=== PATIENT | male | born 1945 | race Two or more races ===

== ENCOUNTER 2023-05-02 17:58 | Emergency (ER) | payer OTHER ==
[2023-05-02 18:05] VITALS: PULSE 66; RESP 17; TEMP 97.1
[2023-05-02] MEDS ORDERED: METOCLOPRAMIDE HCL INJECTION 10 MG/2 ML VIAL IVPB ONE (19:42)
[2023-05-02] MEDS ORDERED: ACETAMINOPHEN 1000 MG/100 ML BAG IVPB ONE (19:42)
[2023-05-02] MEDS ORDERED: METOCLOPRAMIDE HCL INJECTION 10 MG/2 ML VIAL ONE (19:47)
[2023-05-02] MEDS ORDERED: ACETAMINOPHEN INJECTION 100 ML IVPB ONE (19:47)
[2023-05-02 20:36] LABS: BASO % 1.1 % (0-2.0); EOS % 7.6 % (0-4.5); HEMATOCRIT 40.4 % (35.4-49); HEMOGLOBIN 13.4 GM/dL (11.7-16.9); MCH 30.9 pg (25.7-33.7); MCHC 33.2 g/dl (32.0-35.9); MEAN PLT VOLUME 7.4 fl (7.5-11.1); MONO % 8.1 % (3.8-10.2); NEUT % 62.2 % (42.8-82.8); PLATELET COUNT 307 10^3/uL (134-434); RBC 4.35 M/mm3 (4.00-5.60); RDW 17.2 % (11.9-15.9); WHITE BLOOD COUNT 8.3 K/mm3 (4.0-10.0)
[2023-05-02 20:49] LABS: POTASSIUM 5.4 mmol/L (3.5-5.1)
[2023-05-02 20:52] LABS: CALCIUM 9.3 mg/dL (8.5-10.1)
[2023-05-02 20:53] LABS: ALBUMIN 3.6 g/dl (3.4-5.0); BLOOD UREA NITROGEN 15.2 mg/dL (7-18)
[2023-05-02 20:54] LABS: EPI CELLS 7 /uL (0-25.1); HYALINE CASTS 0 /uL (0-3.1); URINE APPEARANCE CLEAR; URINE BACTERIA 12 /uL (0-1359); URINE BILIRUBIN NEGATIVE (NEGATIVE); URINE COLOR YELLOW; URINE GLUCOSE (UA) 2+ (NEGATIVE); URINE KETONE NEGATIVE (NEGATIVE); URINE LEUK ESTERASE NEGATIVE (NEGATIVE); URINE NITRITE NEGATIVE (NEGATIVE); URINE PROTEIN 1+ (NEGATIVE); URINE RBC 15 /uL (0-23.9); URINE UROBILINOGEN 0.2 mg/dL (0.2-1.0); URINE WBC 8 /uL (0-25.8)
[2023-05-02 20:56] LABS: CREATININE 1.2 mg/dL (0.55-1.3)
[2023-05-02 20:57] LABS: TOT PROT 7.8 g/dl (6.4-8.2)
[2023-05-02 20:58] LABS: BILIRUBIN,TOTAL 0.7 mg/dL (0.2-1)
[2023-05-02] MEDS ORDERED: SODIUM CHLORIDE 0.9% 500 ML INFUS.BAG IV ONE (21:09)
[2023-05-02] MEDS ORDERED: LOSARTAN POTASSIUM 25 MG TABLET PO ONE (21:09)
[2023-05-02] MEDS ORDERED: LOSARTAN POTASSIUM 25 MG TABLET ONE (21:13)
[2023-05-02 22:36] VITALS: BP 163/73
== END 2023-05-02 22:57 | disposition home or self-care (01) ==
LOC: JER 17:58
PROC: 3E033NZ Introduction of Analgesics, Hypnotics, Sedatives into Peripheral Vein, Percutaneous Approach (ICD-10-PCS; principal; 2023-05-02)
PROC: 3E033GC Introduction of Other Therapeutic Substance into Peripheral Vein, Percutaneous Approach (ICD-10-PCS; 2023-05-02)
DX: I10 Essential (primary) hypertension (principal); R51.9 Headache, unspecified; Z20.822 Contact with and (suspected) exposure to COVID-19
CPT/HCPCS: 0241U-QW; 36415; 70450-TC; 71046-TC-FY; 80053; 81003; 84484; 85025; 93005; 93010; 99285-25

== ENCOUNTER 2023-06-04 21:08 | Inpatient (IN) | payer OTHER ==
[2023-06-04 21:22] VITALS: BMI 26.4
[2023-06-05 00:15] LABS: BASO % 1.1 % (0-2.0); EOS % 11.6 % (0-4.5); HEMATOCRIT 34.5 % (35.4-49); HEMOGLOBIN 11.2 GM/dL (11.7-16.9); LYMPH % 19.6 % (8-40); MCH 29.9 pg (25.7-33.7); MCHC 32.4 g/dl (32.0-35.9); MEAN CELL VOLUME 92.3 fl (80-96); MEAN PLT VOLUME 7.2 fl (7.5-11.1); MONO % 9.3 % (3.8-10.2); NEUT % 58.4 % (42.8-82.8); PLATELET COUNT 398 10^3/uL (134-434); RBC 3.74 M/mm3 (4.00-5.60); RDW 16.3 % (11.9-15.9); WHITE BLOOD COUNT 6.8 K/mm3 (4.0-10.0)
[2023-06-05 00:24] LABS: INR 0.99 (0.83-1.09); PROTHROMBIN TIME (PATIENT) 11.5 SEC (9.7-13.0)
[2023-06-05 00:27] LABS: ACTIVATED PTT 32.5 SECONDS (25.2-36.5)
[2023-06-05 00:35] LABS: POTASSIUM 4.4 mmol/L (3.5-5.1)
[2023-06-05 00:37] LABS: CALCIUM 8.9 mg/dL (8.5-10.1)
[2023-06-05 00:38] LABS: ALBUMIN 3.2 g/dl (3.4-5.0); BLOOD UREA NITROGEN 9.8 mg/dL (7-18)
[2023-06-05 00:41] LABS: CREATININE 1.2 mg/dL (0.55-1.3)
[2023-06-05 00:42] LABS: BILIRUBIN,TOTAL 0.3 mg/dL (0.2-1); TOT PROT 7.3 g/dl (6.4-8.2)
[2023-06-05 00:45] LABS: N-TERMINAL BNP 300.2 pg/ml (5-450)
[2023-06-05] MEDS ORDERED: CEFTRIAXONE 1,000 MG in DEXTROSE 5%-WATER - 50 ML IVPB ONE (01:52)
[2023-06-05] MEDS ORDERED: AZITHROMYCIN IVPB 500 MG in DEXTROSE 5%-WATER - 250 ML IVPB ONE (01:52)
[2023-06-05] MEDS ORDERED: AZITHROMYCIN IVPB 500 MG/250 ML BAG IVPB ONE (02:33)
[2023-06-05] MEDS ORDERED: CEFTRIAXONE 1 GM/50 ML BAG ONE (02:33)
[2023-06-05] MEDS: INSULIN SLIDING SCALE (NOVOLOG) 1 VIAL SQ SCH ×3 (08:22→17:41)
[2023-06-05 08:52] LABS: HEMATOCRIT 34.1 % (35.4-49); HEMOGLOBIN 11.1 GM/dL (11.7-16.9); MCH 29.8 pg (25.7-33.7); MCHC 32.5 g/dl (32.0-35.9); MEAN CELL VOLUME 91.6 fl (80-96); MEAN PLT VOLUME 7.2 fl (7.5-11.1); PLATELET COUNT 376 10^3/uL (134-434); RBC 3.72 M/mm3 (4.00-5.60); RDW 16.5 % (11.9-15.9); WHITE BLOOD COUNT 7.2 K/mm3 (4.0-10.0)
[2023-06-05 09:24] LABS: BLOOD UREA NITROGEN 8.3 mg/dL (7-18); CALCIUM 8.7 mg/dL (8.5-10.1)
[2023-06-05 09:29] LABS: BILIRUBIN,TOTAL 0.3 mg/dL (0.2-1); TOT PROT 6.8 g/dl (6.4-8.2)
[2023-06-05] MEDS ORDERED: PIPERACILLIN/TAZOB 4.5 GM 4.5 GM/100 ML BAG IVPB ONE ×2 (09:37→15:32)
[2023-06-05] MEDS: ENOXAPARIN NA (PORCINE) 40 MG/0.4 ML DISP.SYRIN SQ SCH (09:45)
[2023-06-05] MEDS: PIPERACILLIN/TAZOB 4.5 GM 4.5 GM in DEXTROSE 5%-WATER 100 ML IVPB SCH ×2 (09:45→15:42)
[2023-06-05] MEDS: CLOPIDOGREL BISULFATE 75 MG TABLET (FP) PO SCH (09:45)
[2023-06-05] MEDS ORDERED: ALBUTEROL SO4 0.042% IH SOL 1.25 MG/3 ML VIAL.NEB NEB PRN (10:45)
[2023-06-05] MEDS ORDERED: IRON SUCROSE INJECTION 100 MG in SODIUM CHLORIDE 95 ML IVPB ONE (11:00)
[2023-06-05 12:11] LABS: ARTERIAL BLD GAS O2 SATURATION 86.4 % (95-98); ARTERIAL BLOOD GAS BASE EXCESS 0.6 mmol/L (-2-2); ARTERIAL BLOOD GAS PO2 52.5 mmHg (80-100); ARTERIAL BLOOD GAS pH 7.381 (7.350-7.450)
[2023-06-05 12:12] LABS: ALLENS TEST POSITIVE
[2023-06-05] MEDS ORDERED: ACETAMINOPHEN 1000 MG/100 ML BAG IVPB PRN (15:26)
[2023-06-05] MEDS ORDERED: morphine SULFATE 4 MG/ML VIAL IVPUSH ONE (15:27)
[2023-06-05 18:06] LABS: BF WBC & OTHER NUCLEATED CELLS 927 /mm3; BODY FLUID MACROPHAGES 1 %; BODY FLUID MESOTHELIAL 2 %; BODY FLUID MONOCYTE 33 %; BODYL FLD EOSINOPHIL 1 %
[2023-06-06] MEDS: INSULIN SLIDING SCALE (NOVOLOG) 1 VIAL SQ SCH ×5 (00:23→21:34)
[2023-06-06] MEDS ORDERED: AZITHROMYCIN IVPB 500 MG in DEXTROSE 5%-WATER - 250 ML IVPB SCH (06:00)
[2023-06-06] MEDS ORDERED: PIPERACILLIN/TAZOB 4.5 GM 4.5 GM in DEXTROSE 5%-WATER 100 ML IVPB SCH (09:00)
[2023-06-06] MEDS ORDERED: LISINOPRIL 10 MG TABLET ONE (09:09)
[2023-06-06] MEDS ORDERED: CLOPIDOGREL BISULFATE 75 MG TABLET (FP) ONE (09:09)
[2023-06-06] MEDS ORDERED: ENOXAPARIN NA (PORCINE) 40 MG/0.4 ML DISP.SYRIN SQ ONE (09:09)
[2023-06-06] MEDS: ENOXAPARIN NA (PORCINE) 40 MG/0.4 ML DISP.SYRIN SQ SCH (09:30)
[2023-06-06] MEDS: LISINOPRIL 10 MG TABLET PO SCH (09:31)
[2023-06-06] MEDS: CLOPIDOGREL BISULFATE 75 MG TABLET (FP) PO SCH (09:31)
[2023-06-06] MEDS ORDERED: ACETAMINOPHEN INJECTION 100 ML IVPB ONE (12:01)
[2023-06-06] MEDS ORDERED: ACETAMINOPHEN 325 MG TABLET (FP) PO PRN (17:48)
[2023-06-07] MEDS: INSULIN SLIDING SCALE (NOVOLOG) 1 VIAL SQ SCH ×4 (06:52→21:46)
[2023-06-07] MEDS: ENOXAPARIN NA (PORCINE) 40 MG/0.4 ML DISP.SYRIN SQ SCH (09:55)
[2023-06-07] MEDS: LISINOPRIL 10 MG TABLET PO SCH (09:55)
[2023-06-07] MEDS: CLOPIDOGREL BISULFATE 75 MG TABLET (FP) PO SCH (09:55)
[2023-06-07 10:16] LABS: BASO % 0.9 % (0-2.0); EOS % 14.6 % (0-4.5); HEMATOCRIT 34.2 % (35.4-49); LYMPH % 23.2 % (8-40); MCH 29.7 pg (25.7-33.7); MCHC 32.3 g/dl (32.0-35.9); MEAN PLT VOLUME 7.2 fl (7.5-11.1); MONO % 9.6 % (3.8-10.2); NEUT % 51.7 % (42.8-82.8); PLATELET COUNT 414 10^3/uL (134-434); RBC 3.72 M/mm3 (4.00-5.60); RDW 16.8 % (11.9-15.9); WHITE BLOOD COUNT 5.9 K/mm3 (4.0-10.0)
[2023-06-07 10:34] LABS: ALBUMIN 2.9 g/dl (3.4-5.0); BLOOD UREA NITROGEN 7.1 mg/dL (7-18)
[2023-06-07 10:37] LABS: TOT PROT 6.7 g/dl (6.4-8.2)
[2023-06-07 10:38] LABS: BILIRUBIN,TOTAL 0.4 mg/dL (0.2-1)
[2023-06-08] MEDS: INSULIN SLIDING SCALE (NOVOLOG) 1 VIAL SQ SCH ×4 (06:54→21:28)
[2023-06-08] MEDS: CLOPIDOGREL BISULFATE 75 MG TABLET (FP) PO SCH (10:21)
[2023-06-08] MEDS: LISINOPRIL 10 MG TABLET PO SCH (10:21)
[2023-06-08] MEDS: ENOXAPARIN NA (PORCINE) 40 MG/0.4 ML DISP.SYRIN SQ SCH (10:24)
[2023-06-08] MEDS: PANTOPRAZOLE SODIUM 40 MG VIAL IVPUSH SCH (20:00)
[2023-06-08] MEDS: CARVEDILOL 3.125 MG TABLET (FP) PO SCH (21:21)
[2023-06-08] MEDS ORDERED: ROSUVASTATIN CA 20 MG TABLET PO SCH (22:00)
[2023-06-09] MEDS: INSULIN SLIDING SCALE (NOVOLOG) 1 VIAL SQ SCH ×3 (06:42→17:38)
[2023-06-09 08:12] VITALS: RESP 18
[2023-06-09] MEDS: CARVEDILOL 3.125 MG TABLET (FP) PO SCH (09:26)
[2023-06-09] MEDS: PANTOPRAZOLE SODIUM 40 MG VIAL IVPUSH SCH (09:27)
[2023-06-09] MEDS ORDERED: LOSARTAN POTASSIUM 50 MG TABLET PO SCH (10:00)
[2023-06-09] MEDS ORDERED: amLODIPine BESYLATE 5 MG TABLET (FP) PO SCH (10:00)
[2023-06-09] MEDS ORDERED: FINASTERIDE 5 MG TABLET (FP) PO SCH (10:00)
[2023-06-09 10:27] LABS: BASO % 1.8 % (0-2.0); EOS % 16.5 % (0-4.5); HEMATOCRIT 32.6 % (35.4-49); HEMOGLOBIN 10.7 GM/dL (11.7-16.9); LYMPH % 25.2 % (8-40); MCH 30.3 pg (25.7-33.7); MCHC 32.8 g/dl (32.0-35.9); MEAN CELL VOLUME 92.2 fl (80-96); MONO % 8.5 % (3.8-10.2); PLATELET COUNT 390 10^3/uL (134-434); RBC 3.54 M/mm3 (4.00-5.60); RDW 16.8 % (11.9-15.9); WHITE BLOOD COUNT 5.4 K/mm3 (4.0-10.0)
[2023-06-09 10:49] LABS: POTASSIUM 4.1 mmol/L (3.5-5.1)
[2023-06-09 11:08] LABS: CALCIUM 8.6 mg/dL (8.5-10.1)
[2023-06-09 11:09] LABS: ALBUMIN 2.8 g/dl (3.4-5.0); BLOOD UREA NITROGEN 5.3 mg/dL (7-18)
[2023-06-09 11:12] LABS: CREATININE 0.9 mg/dL (0.55-1.3); PHOSPHOROUS 2.5 mg/dL (2.5-4.9)
[2023-06-09 11:13] LABS: BILIRUBIN,TOTAL 0.4 mg/dL (0.2-1)
[2023-06-09 11:14] LABS: TOT PROT 6.4 g/dl (6.4-8.2)
[2023-06-09 14:54] VITALS: BP 100/49; PULSE 79; TEMP 98
== END 2023-06-09 17:20 | disposition home or self-care (01) | DRG 186 ==
LOC: JER 21:08 → JERBED 06-05 02:51 → J6S 06-06 17:16
PROVIDERS: ADMIT Internal Medicine; ATTEND Internal Medicine
PROC: 0W9930Z Drainage of Right Pleural Cavity with Drainage Device, Percutaneous Approach (ICD-10-PCS; principal; 2023-06-05)
DX: J90 Pleural effusion, not elsewhere classified (principal); J96.01 Acute respiratory failure with hypoxia; C34.90 Malignant neoplasm of unspecified part of unspecified bronchus or lung; K92.1 Melena; T85.628A Displacement of other specified internal prosthetic devices, implants and grafts, initial encounter; J98.11 Atelectasis; E11.9 Type 2 diabetes mellitus without complications; I25.10 Atherosclerotic heart disease of native coronary artery without angina pectoris; I10 Essential (primary) hypertension; D64.9 Anemia, unspecified; Z95.5 Presence of coronary angioplasty implant and graft; Y83.9 Surgical procedure, unspecified as the cause of abnormal reaction of the patient, or of later complication, without mention of misadventure at the time of the procedure
CPT/HCPCS: 0241U-QW; 36415; 36600; 71045-TC-FY; 71046-TC-FY; 71275-TC; 74177-TC; 80053; 82272; 82728; 82803; 82962; 83010; 83540; 83550; 83615; 83735; 83880; 84100; 84466; 84484; 85025; 85027; 85045; 85379; 85610; 85730; 88108; 88305-TC; 93005; 93010; 99285-25; J1756; Q9967

== ENCOUNTER 2023-06-12 09:20 | Emergency (ER) | payer OTHER ==
[2023-06-12 09:47] VITALS: BMI 24.2
[2023-06-12 11:35] LABS: BASO % 0.3 % (0-2.0); EOS % 13.4 % (0-4.5); HEMATOCRIT 33.1 % (35.4-49); HEMOGLOBIN 10.9 GM/dL (11.7-16.9); LYMPH % 18.9 % (8-40); MCH 30.5 pg (25.7-33.7); MCHC 33.1 g/dl (32.0-35.9); MEAN CELL VOLUME 92.4 fl (80-96); MEAN PLT VOLUME 6.8 fl (7.5-11.1); MONO % 9.3 % (3.8-10.2); NEUT % 58.1 % (42.8-82.8); PLATELET COUNT 418 10^3/uL (134-434); RBC 3.58 M/mm3 (4.00-5.60); RDW 17.3 % (11.9-15.9); WHITE BLOOD COUNT 7.6 K/mm3 (4.0-10.0)
[2023-06-12 11:55] LABS: POTASSIUM 4.2 mmol/L (3.5-5.1)
[2023-06-12 11:59] LABS: CALCIUM 9.7 mg/dL (8.5-10.1)
[2023-06-12 12:00] LABS: ALBUMIN 3.2 g/dl (3.4-5.0); BLOOD UREA NITROGEN 9.3 mg/dL (7-18)
[2023-06-12 12:03] LABS: CREATININE 1.2 mg/dL (0.55-1.3)
[2023-06-12 12:04] LABS: BILIRUBIN,TOTAL 0.4 mg/dL (0.2-1); TOT PROT 7.3 g/dl (6.4-8.2)
[2023-06-12 13:48] VITALS: BP 153/77; PULSE 77; RESP 18
[2023-06-12] MEDS ORDERED: ACETAMINOPHEN 1000 MG/100 ML BAG IVPB ONE (14:25)
[2023-06-12] MEDS ORDERED: ACETAMINOPHEN INJECTION 100 ML IVPB ONE (14:27)
[2023-06-12 14:45] VITALS: TEMP 97.8
== END 2023-06-12 14:47 | disposition home or self-care (01) ==
LOC: JER 09:20
PROC: 3E033NZ Introduction of Analgesics, Hypnotics, Sedatives into Peripheral Vein, Percutaneous Approach (ICD-10-PCS; principal; 2023-06-12)
DX: R07.89 Other chest pain (principal); R05.9 Cough, unspecified; R22.2 Localized swelling, mass and lump, trunk; J91.0 Malignant pleural effusion; Z20.822 Contact with and (suspected) exposure to COVID-19
CPT/HCPCS: 0241U-QW; 36415; 71046-TC-FY; 71275-TC; 80053; 84484; 85025; 93005; 93010; 96374; 99285-25; Q9967

== ENCOUNTER 2024-10-06 10:40 | Inpatient (IN) | payer OTHER ==
[2024-10-06 11:41] LABS: ABSOLUTE IMMATURE GRANULOCYTES 0.22 x10^3/uL (0.0-0.031); BASOPHILS # 0.06 x10^3/uL (0.01-0.08); EOSINOPHIL % 0.3 % (0.8-7.0); EOSINOPHILS # 0.06 x10^3/uL (0.04-0.54); HEMATOCRIT 35.1 % (40.1-51.0); HEMOGLOBIN 11.4 g/dL (13.7-17.5); MCHC 32.5 g/dl (32.3-36.5); MEAN CELL VOLUME 83.2 fl (79.0-92.2); MEAN PLT VOLUME 10.4 fl (9.4-12.4); MONOCYTE # 0.85 x10^3/uL (0.30-0.82); MONOCYTE % 4.7 % (5.3-12.2); PLATELET COUNT 271 x10^3/uL (163-337); RDW 18.7 % (12.2-16.6)
[2024-10-06 11:45] LABS: VENOUS BASE EXCESS -8.4 mmol/L (-2-2); VENOUS O2 SATURATION 56.1 % (70-80); VENOUS PCO2 35.1 mmHg (38-52); VENOUS PH 7.304 (7.310-7.410)
[2024-10-06 12:00] LABS: INR 1.12 (0.83-1.09); PROTHROMBIN TIME (PATIENT) 12.3 SEC (9.7-13.0)
[2024-10-06 12:02] LABS: ACTIVATED PTT 27.7 SECONDS (25.2-36.5)
[2024-10-06 12:05] LABS: CHLORIDE 109 mmol/L (98-107); SODIUM 134 mmol/L (136-145)
[2024-10-06 12:06] LABS: ALBUMIN 1.9 g/dl (3.4-5.0); BLOOD UREA NITROGEN 21.5 mg/dL (7-18); CALCIUM 8.5 mg/dL (8.5-10.1); CO2 17 mmol/L (21-32)
[2024-10-06 12:07] LABS: GLUCOSE,RANDOM 125 mg/dL (74-106)
[2024-10-06 12:10] LABS: CREATININE 1.4 mg/dL (0.55-1.3)
[2024-10-06 12:11] LABS: BILIRUBIN,TOTAL 0.8 mg/dL (0.2-1); TOT PROT 6.6 g/dl (6.4-8.2)
[2024-10-06 12:12] LABS: ALK PHOS 133 U/L (45-117)
[2024-10-06] MEDS: LACTATED RINGERS SOLUTION 1000 ML INFUS.BAG IV ONE (12:19)
[2024-10-06 12:20] LABS: ANION GAP 8 mmol/L (4-13); POTASSIUM 7.9 mmol/L (3.5-5.1); SGOT/AST 113 U/L (15-37); SGPT/ALT 38 U/L (13-61)
[2024-10-06] MEDS ORDERED: PIPERACILLIN/TAZOB 4.5 GM 4.5 GM/100 ML BAG IVPB ONE (12:31)
[2024-10-06] MEDS: PIPERACILLIN/TAZOB 4.5 GM 4.5 GM in DEXTROSE 5%-WATER 100 ML IVPB ONE (12:49)
[2024-10-06] MEDS ORDERED: VANCOMYCIN 1 GM PREMIX (F) 1 GM/200 ML BAG ONE (13:03)
[2024-10-06] MEDS: VANCOMYCIN 1,000 MG in DEXTROSE 5%-WATER - 250 ML IVPB ONE (13:08)
[2024-10-06 13:14] LABS: EPI CELLS 34 /uL (0-25.1); HYALINE CASTS 9 /uL (0-3.1); URINE APPEARANCE CLOUDY; URINE BACTERIA 26 /uL (0-1359); URINE BILIRUBIN NEGATIVE (NEGATIVE); URINE COLOR DK YELLOW; URINE GLUCOSE (UA) 3+ (NEGATIVE); URINE KETONE TRACE (NEGATIVE); URINE LEUK ESTERASE NEGATIVE (NEGATIVE); URINE NITRITE NEGATIVE (NEGATIVE); URINE PROTEIN 2+ (NEGATIVE)
[2024-10-06] MEDS ORDERED: INSULIN REGULAR HUMAN 100 UNITS/ML *VIAL IVPUSH ONE (14:30)
[2024-10-06] MEDS ORDERED: DEXTROSE 50%-WATER - 25 GM/50 ML VIAL IVPUSH PRN (14:30)
[2024-10-06 14:49] LABS: CALCIUM 8.5 mg/dL (8.5-10.1); POTASSIUM 3.6 mmol/L (3.5-5.1)
[2024-10-06 14:51] LABS: BLOOD UREA NITROGEN 19.4 mg/dL (7-18)
[2024-10-06 14:53] LABS: CREATININE 1.2 mg/dL (0.55-1.3)
[2024-10-06 15:08] LABS: URINE RBC 23.8 /uL (0-23.9); URINE WBC 58.2 /uL (0-25.8)
[2024-10-06] MEDS: INSULIN REGULAR HUMAN 100 UNITS/ML *VIAL IVPUSH ONE (15:32)
[2024-10-06] MEDS: CALCIUM GLUC IN NACL, ISO-OSM 1 GM/50 ML BAG IVPB ONE (15:32)
[2024-10-06] MEDS ORDERED: ACETAMINOPHEN INJECTION 100 ML ONE (15:45)
[2024-10-06] MEDS: ACETAMINOPHEN 1000 MG/100 ML BAG IVPB ONE (15:52)
[2024-10-06] MEDS: SODIUM CHLORIDE 0.9% 500 ML INFUS.BAG IV ONE (16:56)
[2024-10-06] MEDS ORDERED: PIPERACILLIN/TAZOB 3.375 GM 3.375 GM/50 ML BAG IVPB ONE (18:31)
[2024-10-06] MEDS: SODIUM CHLORIDE 1,000 ML IV SCH (18:42)
[2024-10-06] MEDS: PIPERACILLIN/TAZOB 3.375 GM 3.375 GM in DEXTROSE 5%-WATER - 50 ML IVPB SCH (18:42)
[2024-10-06] MEDS ORDERED: PIPERACILLIN/TAZOB 3.375 GM 3.375 GM in DEXTROSE 5%-WATER - 50 ML IVPB SCH (19:00)
[2024-10-06] MEDS ORDERED: ALBUMIN HUMAN 5% 500 ML IV SOLUTION IV ONE (19:30)
[2024-10-06] MEDS ORDERED: SEVOFLURANE 250 ML BTL ONE (19:35)
[2024-10-06] MEDS ORDERED: PROPOFOL 20 ML ONE (19:36)
[2024-10-06] MEDS ORDERED: DEXAMETHASONE SOD PHOSPHATE 4 MG/1 ML VIAL ONE ×2 (19:36→22:10)
[2024-10-06] MEDS ORDERED: ONDANSETRON 4 MG/2 ML VIAL ONE (19:36)
[2024-10-06] MEDS ORDERED: MIDAZOLAM HCL 2 MG/2 ML SINGLE DOSE VIAL ONE (19:36)
[2024-10-06] MEDS ORDERED: ROCURONIUM BROMIDE 50 MG/5 ML SYRINGE ONE ×2 (19:37→22:10)
[2024-10-06] MEDS ORDERED: HEPARIN NA (PORCINE) 5,000 UNITS/ML 1ML VIAL ONE (19:44)
[2024-10-06] MEDS ORDERED: INDOCYANINE GREEN 25 MG/10 ML VIAL IVPUSH ONE (19:44)
[2024-10-06] MEDS ORDERED: cefOXitin SODIUM 2 GM VIAL (RESTRICTED TO ID) IVPB ONE (19:44)
[2024-10-06] MEDS ORDERED: BUPIVACAINE HCL/PF 0.5% (5MG/ML) 10 ML VIAL ONE (19:44)
[2024-10-06] MEDS: BUPIVACAINE HCL/PF 0.25% (2.5MG/ML) 10 ML VIAL IJ ONE (20:58)
[2024-10-06] MEDS: ALBUMIN HUMAN 5% 250 ML IV SOLUTION IV ONE ×2 (20:59)
[2024-10-06] MEDS ORDERED: DONEPEZIL HCL 5 MG TABLET (FP) PO SCH (22:00)
[2024-10-06] MEDS ORDERED: INSULIN ASPART SLIDING SCALE (NOVOLOG) 1 VIAL SQ SCH (22:00)
[2024-10-06] MEDS ORDERED: INSULIN GLARGINE (LANTUS) 100 UNITS/ML UNITS SQ SCH (22:00)
[2024-10-06] MEDS ORDERED: SACUBITRIL/VALSARTAN 97 MG-103 MG TABLET PO SCH (22:00)
[2024-10-06] MEDS ORDERED: CARVEDILOL 3.125 MG TABLET (FP) PO SCH (22:00)
[2024-10-06] MEDS: cefOXitin SODIUM 1 GM VIAL (RESTRICTED TO ID) IVPB ONE (22:13)
[2024-10-06] MEDS ORDERED: SUGAMMADEX SODIUM 200 MG/2 ML VIAL ONE (23:28)
[2024-10-07] MEDS ORDERED: PROMETHAZINE HCL 25 MG/1 ML VIAL IVPB PRN (00:52)
[2024-10-07] MEDS ORDERED: ONDANSETRON 4 MG/2 ML VIAL IVPUSH PRN ×2 (00:52→00:53)
[2024-10-07] MEDS ORDERED: HYDROmorphone *PCA* 10MG/50ML DISP.SYRIN ONE (01:13)
[2024-10-07] MEDS: HYDROmorphone *PCA* 10MG/50ML DISP.SYRIN PCA SCH (01:25)
[2024-10-07] MEDS: LACTATED RINGERS SOLUTION 1,000 ML IV SCH (01:26)
[2024-10-07 03:35] LABS: CHLORIDE 114 mmol/L (98-107); SODIUM 138 mmol/L (136-145)
[2024-10-07 03:37] LABS: ALBUMIN 1.8 g/dl (3.4-5.0); CALCIUM 7.4 mg/dL (8.5-10.1); CO2 15 mmol/L (21-32); MAGNESIUM 1.6 mg/dL (1.8-2.4)
[2024-10-07] MEDS: HYDROmorphone HCL CARPU-JECT 2 MG/1 ML DISP.SYRIN IVPUSH PRN (03:37)
[2024-10-07 03:38] LABS: GLUCOSE,RANDOM 147 mg/dL (74-106)
[2024-10-07 03:40] LABS: CREATININE 1.4 mg/dL (0.55-1.3); SGOT/AST 55 U/L (15-37); SGPT/ALT 22 U/L (13-61)
[2024-10-07 03:41] LABS: PHOSPHOROUS 4.4 mg/dL (2.5-4.9)
[2024-10-07 03:42] LABS: BILIRUBIN,TOTAL 0.9 mg/dL (0.2-1); TOT PROT 4.8 g/dl (6.4-8.2)
[2024-10-07] MEDS: ACETAMINOPHEN 1000 MG/100 ML BAG IVPB SCH (03:54)
[2024-10-07] MEDS: CEFAZOLIN SODIUM 2 GM in DEXTROSE 5%-WATER 100 ML IVPB SCH (03:55)
[2024-10-07] MEDS: INSULIN ASPART SLIDING SCALE (NOVOLOG) 1 VIAL SQ SCH (03:55)
[2024-10-07 04:29] LABS: ALK PHOS 78 U/L (45-117); ANION GAP 9 mmol/L (4-13); POTASSIUM 6.4 mmol/L (3.5-5.1)
[2024-10-07 06:53] LABS: HEMATOCRIT 31.7 % (40.1-51.0); MCHC 31.5 g/dl (32.3-36.5); MEAN CELL VOLUME 85.9 fl (79.0-92.2); MEAN PLT VOLUME 10.4 fl (9.4-12.4); PLATELET COUNT 316 x10^3/uL (163-337); RDW 18.7 % (12.2-16.6)
[2024-10-07 07:24] LABS: POTASSIUM 4.8 mmol/L (3.5-5.1)
[2024-10-07 07:26] LABS: BLOOD UREA NITROGEN 19.8 mg/dL (7-18); CALCIUM 7.4 mg/dL (8.5-10.1)
[2024-10-07 07:30] LABS: CREATININE 1.6 mg/dL (0.55-1.3)
[2024-10-07 07:31] LABS: BILIRUBIN,TOTAL 0.4 mg/dL (0.2-1)
[2024-10-07] MEDS: SODIUM CHLORIDE 500 ML IV STA ×2 (08:21→12:25)
[2024-10-07] MEDS: PANTOPRAZOLE SODIUM 40 MG VIAL IVPUSH SCH (09:21)
[2024-10-07] MEDS: MUPIROCIN 2% TOPICAL OINTMENT FOR DECOLONIZATION NS SCH (09:21)
[2024-10-07] MEDS ORDERED: amLODIPine BESYLATE 5 MG TABLET (FP) PO SCH (10:00)
[2024-10-07] MEDS ORDERED: ROSUVASTATIN CA 20 MG TABLET PO SCH (10:00)
[2024-10-07] MEDS ORDERED: ENOXAPARIN NA (PORCINE) 40 MG/0.4 ML DISP.SYRIN SQ SCH (10:00)
[2024-10-07] MEDS ORDERED: FINASTERIDE 5 MG TABLET (FP) PO SCH (10:00)
[2024-10-07] MEDS ORDERED: CLOPIDOGREL BISULFATE 75 MG TABLET (FP) PO SCH (10:00)
[2024-10-07] MEDS ORDERED: SERTRALINE HCL 50 MG TABLET (FP) PO SCH (10:00)
[2024-10-07] MEDS: SODIUM CHLORIDE 1,000 ML IV STA ×3 (10:15→16:00)
[2024-10-07 16:41] LABS: HEMATOCRIT 24.6 % (40.1-51.0); HEMOGLOBIN 7.9 g/dL (13.7-17.5); MCHC 32.1 g/dl (32.3-36.5); MEAN CELL VOLUME 84.8 fl (79.0-92.2); MEAN PLT VOLUME 9.7 fl (9.4-12.4); PLATELET COUNT 297 x10^3/uL (163-337); RDW 19.1 % (12.2-16.6)
[2024-10-07 17:02] LABS: CHLORIDE 116 mmol/L (98-107); POTASSIUM 4.1 mmol/L (3.5-5.1); SODIUM 143 mmol/L (136-145)
[2024-10-07 17:08] LABS: ANION GAP 12 mmol/L (4-13); CO2 15 mmol/L (21-32); GLUCOSE,RANDOM 153 mg/dL (74-106)
[2024-10-07 17:11] LABS: CREATININE 1.3 mg/dL (0.55-1.3); SGOT/AST 12 U/L (15-37); SGPT/ALT 18 U/L (13-61)
[2024-10-07 17:12] LABS: BILIRUBIN,TOTAL 0.4 mg/dL (0.2-1); TOT PROT 4.3 g/dl (6.4-8.2)
[2024-10-07 17:13] LABS: ALK PHOS 63 U/L (45-117)
[2024-10-07 17:16] LABS: ALBUMIN 1.6 g/dl (3.4-5.0); CALCIUM 6.9 mg/dL (8.5-10.1)
[2024-10-07] MEDS: CALCIUM GLUCONATE 10% - 1,000 MG/10 ML VIAL IVPB ONE (18:43)
[2024-10-07] MEDS: PIPERACILLIN/TAZOB 3.375 GM 3.375 GM in DEXTROSE 5%-WATER - 50 ML IVPB SCH (18:57)
[2024-10-07] MEDS: CHLORHEXIDINE GLUCONATE 4% CLEANSER FOR DECOLONIZATION TP SCH (21:55)
[2024-10-08 00:41] LABS: HEMATOCRIT 29.2 % (40.1-51.0); HEMOGLOBIN 9.6 g/dL (13.7-17.5); MCHC 32.9 g/dl (32.3-36.5); MEAN CELL VOLUME 83.9 fl (79.0-92.2); MEAN PLT VOLUME 9.4 fl (9.4-12.4); PLATELET COUNT 291 x10^3/uL (163-337); RDW 18.1 % (12.2-16.6)
[2024-10-08 06:55] LABS: HEMATOCRIT 33.2 % (40.1-51.0); HEMOGLOBIN 11.1 g/dL (13.7-17.5); MCHC 33.4 g/dl (32.3-36.5); MEAN CELL VOLUME 83.4 fl (79.0-92.2); MEAN PLT VOLUME 9.6 fl (9.4-12.4); PLATELET COUNT 294 x10^3/uL (163-337); RDW 17.1 % (12.2-16.6)
[2024-10-08 07:20] LABS: ALBUMIN 1.6 g/dl (3.4-5.0); BLOOD UREA NITROGEN 17.2 mg/dL (7-18); CALCIUM 7.5 mg/dL (8.5-10.1); MAGNESIUM 1.8 mg/dL (1.8-2.4)
[2024-10-08 07:24] LABS: PHOSPHOROUS 2.7 mg/dL (2.5-4.9)
[2024-10-08 07:25] LABS: BILIRUBIN,TOTAL 0.5 mg/dL (0.2-1); TOT PROT 4.5 g/dl (6.4-8.2)
[2024-10-08] MEDS ORDERED: HYDROmorphone HCL CARPU-JECT 2 MG/1 ML DISP.SYRIN IVPUSH PRN (13:09)
[2024-10-08] MEDS: ACETAMINOPHEN 1000 MG/100 ML BAG IVPB PRN (13:22)
[2024-10-08] MEDS: HYDROmorphone HCL CARPU-JECT 2 MG/1 ML DISP.SYRIN IVPUSH PRN (23:11)
[2024-10-09 07:25] LABS: HEMOGLOBIN 10.9 g/dL (13.7-17.5)
[2024-10-09 07:27] LABS: HEMATOCRIT 32.6 % (40.1-51.0); MCHC 33.4 g/dl (32.3-36.5); MEAN CELL VOLUME 82.1 fl (79.0-92.2); MEAN PLT VOLUME 9.5 fl (9.4-12.4); PLATELET COUNT 348 x10^3/uL (163-337); RDW 17.6 % (12.2-16.6)
[2024-10-09] MEDS: HYDROmorphone HCL CARPU-JECT 2 MG/1 ML DISP.SYRIN IVPUSH PRN (07:46)
[2024-10-09 07:47] LABS: POTASSIUM 3.6 mmol/L (3.5-5.1)
[2024-10-09 07:55] LABS: ALBUMIN 1.4 g/dl (3.4-5.0); CALCIUM 7.5 mg/dL (8.5-10.1)
[2024-10-09 07:56] LABS: BLOOD UREA NITROGEN 10.8 mg/dL (7-18); MAGNESIUM 1.6 mg/dL (1.8-2.4)
[2024-10-09 07:58] LABS: CREATININE 0.7 mg/dL (0.55-1.3)
[2024-10-09 07:59] LABS: BILIRUBIN,TOTAL 0.6 mg/dL (0.2-1); PHOSPHOROUS 1.5 mg/dL (2.5-4.9)
[2024-10-09 08:00] LABS: TOT PROT 4.3 g/dl (6.4-8.2)
[2024-10-09] MEDS: MAGNESIUM SULFATE IN WATER 2 GM/50 ML IVPB IVPB ONE (09:06)
[2024-10-09] MEDS: AMINO ACIDS 4.25%/D5W 1,000 ML IV SCH (09:07)
[2024-10-09] MEDS: LACTATED RINGERS SOLUTION 1,000 ML IV SCH (09:07)
[2024-10-09] MEDS: SODIUM PHOSPHATE - 15 MM in SODIUM CHLORIDE 250 ML IVPB ONE (10:08)
[2024-10-09] MEDS: ACETAMINOPHEN 1000 MG/100 ML BAG IVPB SCH (11:04)
[2024-10-10 07:08] LABS: ABSOLUTE IMMATURE GRANULOCYTES 0.57 x10^3/uL (0.0-0.031); BASOPHILS # 0.05 x10^3/uL (0.01-0.08); EOSINOPHIL % 0.6 % (0.8-7.0); EOSINOPHILS # 0.07 x10^3/uL (0.04-0.54); HEMATOCRIT 35.7 % (40.1-51.0); HEMOGLOBIN 11.8 g/dL (13.7-17.5); MCHC 33.1 g/dl (32.3-36.5); MEAN CELL VOLUME 82.4 fl (79.0-92.2); MEAN PLT VOLUME 9.4 fl (9.4-12.4); MONOCYTE # 0.17 x10^3/uL (0.30-0.82); MONOCYTE % 1.5 % (5.3-12.2); PLATELET COUNT 429 x10^3/uL (163-337); RDW 17.6 % (12.2-16.6)
[2024-10-10 07:33] LABS: POTASSIUM 3.4 mmol/L (3.5-5.1)
[2024-10-10 07:39] LABS: ALBUMIN 1.4 g/dl (3.4-5.0)
[2024-10-10 07:40] LABS: CALCIUM 7.3 mg/dL (8.5-10.1); MAGNESIUM 1.7 mg/dL (1.8-2.4)
[2024-10-10 07:42] LABS: PHOSPHOROUS 1.9 mg/dL (2.5-4.9)
[2024-10-10 07:43] LABS: CREATININE 0.6 mg/dL (0.55-1.3)
[2024-10-10 07:44] LABS: BILIRUBIN,TOTAL 0.6 mg/dL (0.2-1); TOT PROT 4.7 g/dl (6.4-8.2)
[2024-10-10] MEDS: MAGNESIUM 2GM/50ML STERILE WATER IVPB IVPB ONE (08:27)
[2024-10-10] MEDS ORDERED: ACETAMINOPHEN 1000 MG/100 ML BAG IVPB PRN (10:12)
[2024-10-10] MEDS: POTASSIUM PHOSPHATE 30 MM in SODIUM CHLORIDE 250 ML IVPB ONE (11:02)
[2024-10-10] MEDS: ACETAMINOPHEN 325 MG TABLET (FP) PO PRN (17:23)
[2024-10-10] MEDS: INSULIN ASPART SLIDING SCALE (NOVOLOG) 1 VIAL SQ SCH (18:46)
[2024-10-10] MEDS: DONEPEZIL HCL 10 MG TABLET (FP) PO SCH (21:21)
[2024-10-10] MEDS: HEPARIN NA (PORCINE) 5,000 UNITS/ML 1ML VIAL SQ SCH (21:22)
[2024-10-10] MEDS ORDERED: DONEPEZIL HCL 5 MG TABLET (FP) PO SCH (22:00)
[2024-10-10] MEDS ORDERED: ALBUMIN HUMAN 5% 500 ML IV SOLUTION IV ONE (23:53)
[2024-10-11] MEDS: PIPERACILLIN/TAZOB 3.375 GM 3.375 GM in DEXTROSE 5%-WATER - 50 ML IVPB SCH (01:10)
[2024-10-11] MEDS: HYDROmorphone HCL CARPU-JECT 2 MG/1 ML DISP.SYRIN IVPUSH PRN (05:27)
[2024-10-11 07:57] LABS: ABSOLUTE IMMATURE GRANULOCYTES 0.81 x10^3/uL (0.0-0.031); BASOPHILS # 0.06 x10^3/uL (0.01-0.08); EOSINOPHIL % 1.7 % (0.8-7.0); EOSINOPHILS # 0.18 x10^3/uL (0.04-0.54); HEMATOCRIT 36.4 % (40.1-51.0); HEMOGLOBIN 12.1 g/dL (13.7-17.5); MCHC 33.2 g/dl (32.3-36.5); MEAN CELL VOLUME 81.4 fl (79.0-92.2); MEAN PLT VOLUME 9.5 fl (9.4-12.4); MONOCYTE # 0.33 x10^3/uL (0.30-0.82); MONOCYTE % 3.1 % (5.3-12.2); PLATELET COUNT 509 x10^3/uL (163-337); RDW 17.6 % (12.2-16.6)
[2024-10-11 08:30] LABS: POTASSIUM 3.4 mmol/L (3.5-5.1)
[2024-10-11 08:39] LABS: ALBUMIN 1.6 g/dl (3.4-5.0); BLOOD UREA NITROGEN 8.1 mg/dL (7-18); CALCIUM 8.1 mg/dL (8.5-10.1); MAGNESIUM 1.9 mg/dL (1.8-2.4)
[2024-10-11 08:43] LABS: BILIRUBIN,TOTAL 0.6 mg/dL (0.2-1); CREATININE 0.6 mg/dL (0.55-1.3)
[2024-10-11] MEDS ORDERED: MUPIROCIN 2% TOPICAL OINTMENT FOR DECOLONIZATION NS SCH (10:00)
[2024-10-11] MEDS ORDERED: ACETAMINOPHEN 325 MG TABLET (FP) PO PRN (10:40)
[2024-10-11] MEDS ORDERED: IBUPROFEN 600 MG TABLET (FP) PO PRN (10:43)
[2024-10-11] MEDS: BREXPIPRAZOLE (REXULTI) 1 MG TABLET (RESTRICTED TO PSYCIATRY) PO SCH (10:55)
[2024-10-11] MEDS: SERTRALINE HCL 50 MG TABLET (FP) PO SCH (10:59)
[2024-10-11] MEDS: FINASTERIDE 5 MG TABLET (FP) PO SCH (10:59)
[2024-10-11] MEDS: SACUBITRIL/VALSARTAN 97 MG-103 MG TABLET PO SCH (10:59)
[2024-10-11] MEDS: CLOPIDOGREL BISULFATE 75 MG TABLET (FP) PO SCH (11:00)
[2024-10-11] MEDS: amLODIPine BESYLATE 5 MG TABLET (FP) PO SCH (11:00)
[2024-10-11] MEDS: LACTATED RINGERS SOLUTION 1,000 ML/1,000 ML INFUS.BAG IV SCH ×2 (11:35→23:40)
[2024-10-11] MEDS: ACETAMINOPHEN 325 MG TABLET (FP) PO SCH (11:37)
[2024-10-11] MEDS: IBUPROFEN 600 MG TABLET (FP) PO PRN (15:12)
[2024-10-11] MEDS: AMINO ACIDS 4.25%/D5W 1,000 ML IV SCH (17:03)
[2024-10-11] MEDS: SODIUM CHLORIDE 500 ML IV STA (17:54)
[2024-10-11] MEDS: KCL 10 MEQ IVPB 10 MEQ/100 ML INFUS.BAG IVPB SCH (17:55)
[2024-10-11] MEDS: DONEPEZIL HCL 5 MG TABLET (FP) PO SCH (21:33)
[2024-10-11 21:41] VITALS: BMI 27.9
[2024-10-11] MEDS ORDERED: CHLORHEXIDINE GLUCONATE 4% CLEANSER FOR DECOLONIZATION TP SCH (22:00)
[2024-10-12 08:54] LABS: HEMATOCRIT 34.3 % (40.1-51.0); HEMOGLOBIN 11.7 g/dL (13.7-17.5); MCHC 34.1 g/dl (32.3-36.5); MEAN CELL VOLUME 81.9 fl (79.0-92.2); MEAN PLT VOLUME 9.4 fl (9.4-12.4); PLATELET COUNT 589 x10^3/uL (163-337); RDW 17.9 % (12.2-16.6)
[2024-10-12 09:27] LABS: POTASSIUM 3.4 mmol/L (3.5-5.1)
[2024-10-12 09:32] LABS: ALBUMIN 1.6 g/dl (3.4-5.0); BLOOD UREA NITROGEN 6.9 mg/dL (7-18); MAGNESIUM 1.9 mg/dL (1.8-2.4)
[2024-10-12 09:35] LABS: CREATININE 0.6 mg/dL (0.55-1.3); PHOSPHOROUS 1.8 mg/dL (2.5-4.9)
[2024-10-12 09:36] LABS: BILIRUBIN,TOTAL 0.6 mg/dL (0.2-1); TOT PROT 5.2 g/dl (6.4-8.2)
[2024-10-12] MEDS ORDERED: amLODIPine BESYLATE 2.5 MG TABLET (FP) PO SCH (10:00)
[2024-10-12] MEDS: amLODIPine BESYLATE 5 MG TABLET (FP) PO SCH (10:23)
[2024-10-12] MEDS: CLOPIDOGREL BISULFATE 75 MG TABLET (FP) PO SCH (10:37)
[2024-10-12] MEDS: POTASSIUM PHOSPHATE 30 MM in DEXTROSE 5%-WATER - 500 ML IVPB ONE (12:23)
[2024-10-12 15:38] VITALS: RESP 18
[2024-10-12] MEDS: KCL 10 MEQ IVPB 10 MEQ/100 ML INFUS.BAG IVPB SCH ×2 (18:53→18:54)
[2024-10-12] MEDS: LACTATED RINGERS SOLUTION 1,000 ML/1,000 ML INFUS.BAG IV SCH (18:55)
[2024-10-12] MEDS: MULTIVITAMINS (DAILY MVI) TABLET (FP) PO SCH (21:00)
[2024-10-12] MEDS: CARVEDILOL 3.125 MG TABLET (FP) PO SCH (21:34)
[2024-10-12] MEDS: NAPH,MB-DB/K PH,MBDB POWDER PACKET PO SCH (21:34)
[2024-10-13 08:25] LABS: HEMATOCRIT 34.3 % (40.1-51.0); HEMOGLOBIN 11.5 g/dL (13.7-17.5); MCHC 33.5 g/dl (32.3-36.5); MEAN CELL VOLUME 82.7 fl (79.0-92.2); MEAN PLT VOLUME 9.4 fl (9.4-12.4); PLATELET COUNT 671 x10^3/uL (163-337); RDW 18.3 % (12.2-16.6)
[2024-10-13 08:40] LABS: POTASSIUM 3.7 mmol/L (3.5-5.1)
[2024-10-13 08:53] LABS: CALCIUM 8.1 mg/dL (8.5-10.1)
[2024-10-13 08:54] LABS: ALBUMIN 1.6 g/dl (3.4-5.0); BLOOD UREA NITROGEN 3.9 mg/dL (7-18); MAGNESIUM 1.6 mg/dL (1.8-2.4)
[2024-10-13 08:57] LABS: CREATININE 0.5 mg/dL (0.55-1.3); PHOSPHOROUS 2.2 mg/dL (2.5-4.9)
[2024-10-13 08:58] LABS: BILIRUBIN,TOTAL 0.5 mg/dL (0.2-1); TOT PROT 5.2 g/dl (6.4-8.2)
[2024-10-13] MEDS: MAGNESIUM 2GM/50ML STERILE WATER IVPB IVPB ONE (10:20)
[2024-10-13] MEDS: MINERAL OIL/PET HY-PHL TOPICAL OINTMENT 454 GM JAR TP SCH (10:39)
[2024-10-13] MEDS ORDERED: INSULIN ASPART SLIDING SCALE (NOVOLOG) 1 VIAL SQ ONE (11:19)
[2024-10-13] MEDS: FLUCONAZOLE 200 MG/NS 100 ML IVPB SCH (17:41)
[2024-10-14 08:10] LABS: ABSOLUTE IMMATURE GRANULOCYTES 0.92 x10^3/uL (0.0-0.031); EOSINOPHIL % 1.1 % (0.8-7.0); EOSINOPHILS # 0.14 x10^3/uL (0.04-0.54); HEMATOCRIT 33.6 % (40.1-51.0); HEMOGLOBIN 11.2 g/dL (13.7-17.5); MCHC 33.3 g/dl (32.3-36.5); MEAN CELL VOLUME 82.8 fl (79.0-92.2); MONOCYTE % 5.7 % (5.3-12.2); PLATELET COUNT 693 x10^3/uL (163-337); RDW 18.5 % (12.2-16.6)
[2024-10-14 08:44] LABS: POTASSIUM 3.6 mmol/L (3.5-5.1)
[2024-10-14 08:57] LABS: ALBUMIN 1.7 g/dl (3.4-5.0); BLOOD UREA NITROGEN 4.2 mg/dL (7-18)
[2024-10-14 08:58] LABS: BILIRUBIN,TOTAL 0.5 mg/dL (0.2-1); TOT PROT 5.3 g/dl (6.4-8.2)
[2024-10-14 08:59] LABS: CALCIUM 8.2 mg/dL (8.5-10.1); MAGNESIUM 1.9 mg/dL (1.8-2.4)
[2024-10-14 09:00] LABS: CREATININE 0.5 mg/dL (0.55-1.3)
[2024-10-14] MEDS: MAGNESIUM SULF 50% (8.12 MEQ/2 ML-1 GM VIAL) IVPB ONE (10:19)
[2024-10-14] MEDS: POTASSIUM PHOSPHATE 15 MM in SODIUM CHLORIDE 250 ML IVPB ONE (15:22)
[2024-10-14] MEDS: PSYLLIUM 5.85 GM PACKET PO SCH (21:12)
[2024-10-15 08:49] LABS: ABSOLUTE IMMATURE GRANULOCYTES 0.93 x10^3/uL (0.0-0.031); BASOPHILS # 0.12 x10^3/uL (0.01-0.08); EOSINOPHIL % 0.7 % (0.8-7.0); EOSINOPHILS # 0.09 x10^3/uL (0.04-0.54); HEMATOCRIT 35.9 % (40.1-51.0); HEMOGLOBIN 11.6 g/dL (13.7-17.5); MCHC 32.3 g/dl (32.3-36.5); MEAN CELL VOLUME 85.1 fl (79.0-92.2); MEAN PLT VOLUME 8.9 fl (9.4-12.4); MONOCYTE # 0.98 x10^3/uL (0.30-0.82); MONOCYTE % 7.2 % (5.3-12.2); PLATELET COUNT 734 x10^3/uL (163-337)
[2024-10-15 09:20] LABS: POTASSIUM 4.2 mmol/L (3.5-5.1)
[2024-10-15 09:48] LABS: CALCIUM 8.3 mg/dL (8.5-10.1)
[2024-10-15 09:49] LABS: ALBUMIN 1.7 g/dl (3.4-5.0); BLOOD UREA NITROGEN 5.8 mg/dL (7-18); MAGNESIUM 1.8 mg/dL (1.8-2.4)
[2024-10-15 09:52] LABS: CREATININE 0.6 mg/dL (0.55-1.3); PHOSPHOROUS 2.4 mg/dL (2.5-4.9)
[2024-10-15 09:53] LABS: BILIRUBIN,TOTAL 0.5 mg/dL (0.2-1); TOT PROT 5.5 g/dl (6.4-8.2)
[2024-10-15] MEDS: ROSUVASTATIN CA 20 MG TABLET PO SCH (23:25)
[2024-10-16 08:14] LABS: HEMATOCRIT 37.1 % (40.1-51.0); MCHC 32.3 g/dl (32.3-36.5); MEAN CELL VOLUME 84.3 fl (79.0-92.2); PLATELET COUNT 786 x10^3/uL (163-337); RDW 19.1 % (12.2-16.6)
[2024-10-16 08:37] LABS: POTASSIUM 3.8 mmol/L (3.5-5.1)
[2024-10-16 08:44] LABS: ALBUMIN 1.8 g/dl (3.4-5.0); BLOOD UREA NITROGEN 5.7 mg/dL (7-18); CALCIUM 8.5 mg/dL (8.5-10.1)
[2024-10-16 08:46] LABS: MAGNESIUM 1.8 mg/dL (1.8-2.4)
[2024-10-16 08:48] LABS: CREATININE 0.6 mg/dL (0.55-1.3)
[2024-10-16 08:49] LABS: PHOSPHOROUS 2.4 mg/dL (2.5-4.9)
[2024-10-16 08:50] LABS: BILIRUBIN,TOTAL 0.4 mg/dL (0.2-1); TOT PROT 5.7 g/dl (6.4-8.2)
[2024-10-16] MEDS: LOPERAMIDE HCL 2 MG CAPSULE PO SCH (10:10)
[2024-10-16] MEDS ORDERED: INSULIN ASPART SLIDING SCALE (NOVOLOG) 1 VIAL SQ ONE (11:35)
[2024-10-17 08:08] LABS: ABSOLUTE IMMATURE GRANULOCYTES 0.69 x10^3/uL (0.0-0.031); BASOPHILS # 0.13 x10^3/uL (0.01-0.08); EOSINOPHIL % 0.9 % (0.8-7.0); EOSINOPHILS # 0.15 x10^3/uL (0.04-0.54); HEMATOCRIT 36.7 % (40.1-51.0); MCHC 32.7 g/dl (32.3-36.5); MEAN CELL VOLUME 84.4 fl (79.0-92.2); MEAN PLT VOLUME 8.7 fl (9.4-12.4); MONOCYTE # 1.24 x10^3/uL (0.30-0.82); MONOCYTE % 7.4 % (5.3-12.2); PLATELET COUNT 737 x10^3/uL (163-337); RDW 19.2 % (12.2-16.6)
[2024-10-17 08:24] LABS: POTASSIUM 3.3 mmol/L (3.5-5.1)
[2024-10-17 08:27] LABS: CALCIUM 8.3 mg/dL (8.5-10.1)
[2024-10-17 08:28] LABS: ALBUMIN 1.8 g/dl (3.4-5.0); BLOOD UREA NITROGEN 6.7 mg/dL (7-18)
[2024-10-17 08:32] LABS: BILIRUBIN,TOTAL 0.4 mg/dL (0.2-1); CREATININE 0.7 mg/dL (0.55-1.3); PHOSPHOROUS 2.9 mg/dL (2.5-4.9)
[2024-10-17 08:34] LABS: TOT PROT 5.7 g/dl (6.4-8.2)
[2024-10-17] MEDS: KETOROLAC TROMETHAMINE 15 MG/ML VIAL IVPUSH ONE (08:59)
[2024-10-17] MEDS: POTASSIUM CHLORIDE ORAL LIQUID 20 MEQ/15 ML PO ONE (12:26)
[2024-10-17] MEDS: MAGNESIUM 2GM/50ML STERILE WATER IVPB IVPB ONE (12:27)
[2024-10-17] MEDS: FLUCONAZOLE 100 MG TABLET (UD) PO SCH (13:37)
[2024-10-17] MEDS: traMADol HCL 50 MG TABLET PO ONE (14:38)
[2024-10-17] MEDS: AMOX TR/POT CLAV 875MG/125MG TABLETS (FP) PO SCH (17:39)
[2024-10-18 09:02] LABS: ABSOLUTE IMMATURE GRANULOCYTES 0.71 x10^3/uL (0.0-0.031); BASOPHILS # 0.14 x10^3/uL (0.01-0.08); EOSINOPHIL % 0.9 % (0.8-7.0); EOSINOPHILS # 0.13 x10^3/uL (0.04-0.54); HEMATOCRIT 36.7 % (40.1-51.0); HEMOGLOBIN 11.7 g/dL (13.7-17.5); MCHC 31.9 g/dl (32.3-36.5); MEAN CELL VOLUME 85.7 fl (79.0-92.2); MEAN PLT VOLUME 9.3 fl (9.4-12.4); MONOCYTE # 1.03 x10^3/uL (0.30-0.82); PLATELET COUNT 714 x10^3/uL (163-337); RDW 19.7 % (12.2-16.6)
[2024-10-18 15:07] VITALS: BP 113/59; PULSE 69; TEMP 97.9
== END 2024-10-18 19:23 | disposition home or self-care (01) | DRG 329 ==
LOC: JER 10:40 → JERBED 16:37 → JICU 10-07 02:01 → J6S 10-10 20:49 → J8W 10-12 15:08
PROVIDERS: ADMIT Internal Medicine; ATTEND Nurse Practitioner Acute Care
PROC: 0W9F0ZZ Drainage of Abdominal Wall, Open Approach (ICD-10-PCS; 2024-10-06)
PROC: 0DNU0ZZ Release Omentum, Open Approach (ICD-10-PCS; 2024-10-06)
PROC: 0WQF0ZZ Repair Abdominal Wall, Open Approach (ICD-10-PCS; 2024-10-06)
PROC: 0DTF0ZZ Resection of Right Large Intestine, Open Approach (ICD-10-PCS; principal; 2024-10-06 19:19)
PROC: 0DTU0ZZ Resection of Omentum, Open Approach (ICD-10-PCS; 2024-10-07)
PROC: 30233N1 Transfusion of Nonautologous Red Blood Cells into Peripheral Vein, Percutaneous Approach (ICD-10-PCS; 2024-10-07)
PROC: 05HM33Z Insertion of Infusion Device into Right Internal Jugular Vein, Percutaneous Approach (ICD-10-PCS; 2024-10-07)
PROC: B543ZZA Ultrasonography of Right Jugular Veins, Guidance (ICD-10-PCS; 2024-10-07)
DX: K35.32 Acute appendicitis with perforation, localized peritonitis, and gangrene, without abscess (principal); K63.1 Perforation of intestine (nontraumatic); T81.19XA Other postprocedural shock, initial encounter; K92.1 Melena; R10.31 Right lower quadrant pain; Y83.9 Surgical procedure, unspecified as the cause of abnormal reaction of the patient, or of later complication, without mention of misadventure at the time of the procedure; E10.9 Type 1 diabetes mellitus without complications; I10 Essential (primary) hypertension; I25.10 Atherosclerotic heart disease of native coronary artery without angina pectoris; F32.A Depression, unspecified; F03.90 Unspecified dementia, unspecified severity, without behavioral disturbance, psychotic disturbance, mood disturbance, and anxiety; N40.0 Benign prostatic hyperplasia without lower urinary tract symptoms; D72.829 Elevated white blood cell count, unspecified; K66.0 Peritoneal adhesions (postprocedural) (postinfection); Z95.1 Presence of aortocoronary bypass graft
CPT/HCPCS: 0241U-QW; 36415; 36430; 71045-TC-FY; 74021-TC-FY; 74176-TC; 74177-TC; 80048; 80053; 81003; 82803; 82962; 83036; 83540; 83550; 83605; 83735; 84100; 84484; 85025; 85027; 85610; 85730; 86140; 86900; 86922; 87040; 87045; 87046; 87070; 87075; 87077; 87086; 87106; 87186; 87205; 87324; 87425; 87449; 87798; 88305-TC; 88307-TC; 93005; 93010; 93306-TC; 94760; 97116-GP; 97163-GP; 99285-25; J0131; J1644; P9038; P9058; Q9967